=== PATIENT | female | born 1995 | race Caucasian/White ===

== ENCOUNTER 2017-06-15 11:19 | Emergency (ER) | payer BC, OTHER ==
[~2017-06-15] VITALS: Ht 167.6 cm; Wt 59.0 kg
[2017-06-15] MEDS ORDERED: CITA40TA11 (11:45)
--- NOTE | 2017-06-15 11:54 | ED GU-Female ---
General Chief Complaint: -Female Stated Complaint: ABD PAIN/N/V Nursing Triage Note: AMB TO ROOM REPORTS HAVING LOW ABD PAIN FOR 3 WEEKS WAS SEEN BY FAMILY WHO GOT HER APPOINTMENT IN [facility] WITH HER OBGYN ON WEDNESDAY. PMH OF REPTURED OVARIAN CYST. HAVING SOME VOMITING WITH PAIN NOW. Nursing Sepsis Screen: No Definite Risk Source: patient, other (boyfriend) Exam Limitations: no limitations History of Present Illness Time seen by provider: 11:54 Initial Comments 21 yo female patient presents to the ED for complaints of lower abdominal pain for approximately 3 wks. She was seen by her PCP and [place], [place] last week. Yesterday had a celiac panel drawn. Patient is scheduled to see Dr. Islas and have an outpatient pelvic ultrasound done on of this week. Brenda does have a history of ruptured ovarian cysts. Does have vomiting, nausea, and increased pain today. Does admit to having intermittent generalized abdominal pain and bloating over the last 1-2 years. Was worked up approximately a year ago in [place] and was told she needed an endoscope done. States she was in school and was not able to have a scope done at that time. States she does not eat fatty foods, spicy foods. avoids foods containing lactose and gluten. Timing/Duration: getting worse Severity/Quality: aching, cramping Location: suprapubic Radiation: none Activities at Onset: none Prior Genitourinary Problems: similar symptoms Sexual [place] History: less than 2 months ago, single partner Modifying Factors: Worsens With Movement, Worsens With Palpation Allergies and Home Medications Allergies Coded Allergies: No Known Drug Allergies (Unverified , 06/15/17) Home Medications Citalopram Hydrobromide 40 Mg Tablet, (Reported) Constitutional: No chills, No diaphoresis, No fever, No malaise EENTM: no symptoms reported Respiratory: no symptoms reported Cardiovascular: no symptoms reported Gastrointestinal: see HPI, abdominal pain, No constipation, No diarrhea, No hematemesis, No heartburn, loss of appetite, No melena, nausea, vomiting Genitourinary: denies burning, denies discharge, denies dysuria, frequency, denies flank pain, denies hematuria, pain, urgency : No Musculoskeletal: no symptoms reported Skin: no symptoms reported Psychiatric/Neurological: No Symptoms Reported All Other Systemes Reviewed Negative Unless Noted: Yes (Negative excepted noted.) Past Dqwuahs-Hjndav-Ndkddf Hx Patient Social History Alcohol Use: Denies Use Recreational Drug Use: No Smoking Status: Never a Smoker Recent Foreign Travel: No Contact w/Someone Who Travel: No Recent Infectious Disease Expo: No Surgeries History of Surgeries: Yes (OVARIAN CYST ) Respiratory History of Respiratory Disorde: No Cardiovascular History of Cardiac Disorders: No Neurological History of Neurological Disord: No Reproductive System : No Last Menstrual Period: May 31, 2017 Hx : 0 Hx Reproductive Disorders: Yes Sexually Transmitted Disease: No Female Reproductive Disorders: Ovarian Cyst Genitourinary History of Genitourinary Disor: No Gastrointestinal History of Gastrointestinal Di: Yes (abdominal bloating and pain intermittently (no definite diagnosis)) Musculoskeletal History of Musculoskeletal Dis: No Endocrine History of Endocrine Disorders: No HEENT History of HEENT Disorders: No Cancer History of Cancer: No Psychosocial History of Psychiatric Problem: Yes Behavioral Health Disorders: Anxiety Integumentary History of Skin or Integumenta: No Reviewed Nursing Assessment Reviewed/Agree w Nursing PMH: Yes Family Medical History Significant Family History: No Pertinent Family Hx Physical Exam Vital Signs Vital Sign - Last 12Hours 06/15/17 11:32 Temp 98.3 Pulse 114 Resp 18 B/P (MAP) 114/79 (91) Pulse Ox 100 Capillary Refill : Less Than 3 Seconds General Appearance: WD/WN, no apparent distress HEENT: PERRL/EOMI, pharynx normal Neck: supple, normal inspection Cardiovascular: normal peripheral pulses, regular rate, rhythm, no murmur Respiratory: lungs clear, normal breath sounds, no respiratory distress, no accessory muscle use Gastrointestinal: normal bowel sounds, soft, no organomegaly, distended ( mildly distended but soft.), guarding (suprapubic and BLQ), No rebound, tenderness (BLQ and suprapubic), No mass Back: normal inspection, no CVA tenderness Extremities: normal capillary refill Neurologic/Psychiatric: alert, normal mood/affect, oriented x 3 Skin: normal color, warm/dry Progress/Results/Core Measures Suspected Sepsis Recent Fever Within 48 Hours: No Infection Criteria Present: None New/Unexplained Altered Menta: No Sepsis Screen: No Definite Risk Sepsis Diagnosis: SIRS Temperature:98.3 Pulse: 114 Respiratory Rate: 18 Laboratory Tests 06/15/17 12:12: White Blood Count 10.4 Blood Pressure 114 /79 Mean: 91 Laboratory Tests 06/15/17 12:12: Creatinine 0.66, Platelet Count 242, Total Bilirubin 0.6 Results/Orders Lab Results Laboratory Tests Test 06/15/17 12:04 06/15/17 12:12 Range/Units Urine Color YELLOW Urine Clarity CLEAR Urine pH 6 5-9 Urine Specific [place] 1.015 L 1.016-1.022 Urine Protein NEGATIVE NEGATIVE Urine Glucose (UA) NEGATIVE NEGATIVE Urine Ketones NEGATIVE NEGATIVE Urine Nitrite NEGATIVE NEGATIVE Urine Bilirubin NEGATIVE NEGATIVE Urine Urobilinogen NORMAL NORMAL MG/DL Urine Leukocyte Esterase 1+ H NEGATIVE Urine RBC (Auto) NEGATIVE NEGATIVE Urine RBC NONE /HPF Urine WBC 5-10 H /HPF Urine Squamous Epithelial Cells 10-25 H /HPF Urine Crystals NONE /LPF Urine Bacteria MODERATE H /HPF Urine Casts NONE /LPF Urine Mucus NEGATIVE /LPF Urine Culture Indicated YES White Blood Count 10.4 4.3-11.0 10^3/uL Red Blood Count 4.84 4.35-5.85 10^6/uL Hemoglobin 15.1 11.5-16.0 G/DL Hematocrit 43 35-52 % Mean Corpuscular Volume 88 80-99 FL Mean Corpuscular Hemoglobin 31 25-34 PG Mean Corpuscular Hemoglobin Concent 35 32-36 G/DL Red Cell Distribution Width 12.6 10.0-14.5 % Platelet Count 242 130-400 10^3/uL Mean Platelet Volume 11.5 H 7.4-10.4 FL Neutrophils (%) (Auto) 82 H 42-75 % Lymphocytes (%) (Auto) 14 12-44 % Monocytes (%) (Auto) 3 0-12 % Eosinophils (%) (Auto) 1 0-10 % Basophils (%) (Auto) 0 0-10 % Neutrophils # (Auto) 8.6 H 1.8-7.8 X 10^3 Lymphocytes # (Auto) 1.4 1.0-4.0 X 10^3 Monocytes # (Auto) 0.3 0.0-1.0 X 10^3 Eosinophils # (Auto) 0.1 0.0-0.3 10^3/uL Basophils # (Auto) 0.0 0.0-0.1 10^3/uL Sodium Level 136 135-145 MMOL/L Potassium Level 4.0 3.6-5.0 MMOL/L Chloride Level 102 98-107 MMOL/L Carbon Dioxide Level 24 21-32 MMOL/L Anion Gap 10 5-14 MMOL/L Blood Urea Nitrogen 13 7-18 MG/DL Creatinine 0.66 0.60-1.30 MG/DL Estimat Glomerular Filtration Rate > 60 BUN/Creatinine Ratio 20 Glucose Level 88 70-105 MG/DL Calcium Level 9.1 8.5-10.1 MG/DL Total Bilirubin 0.6 0.1-1.0 MG/DL Aspartate Amino Transf (AST/SGOT) 19 5-34 U/L Alanine Aminotransferase (ALT/SGPT) 17 0-55 U/L Alkaline Phosphatase 47 40-136 U/L C-Reactive Protein High Sensitivity 0.37 0.00-0.50 MG/DL Total Protein 7.5 6.4-8.2 GM/DL Albumin 4.5 3.2-4.5 GM/DL My Orders Orders - FINN ZACARIAS Cbc With Automated Diff (06/15/17 11:52) Comprehensive Metabolic Panel (06/15/17 11:52) Hs C Reactive Protein (06/15/17 11:52) Ua Culture If Indicated (06/15/17 11:52) Saline Lock/Iv-Start (06/15/17 11:52) Urine Bedside (06/15/17 11:52) Urine Culture (06/15/17 12:04) Ns Iv 1000 Ml (Sodium Chloride 0.9%) (06/15/17 12:20) Ondansetron Injection (Zofran Injectio (06/15/17 12:30) Ketorolac Injection (Toradol Injection) (06/15/17 12:20) Us Non Ob Transvaginal [id number] (06/15/17 12:20) Ct Abdomen/Pelvis W (06/15/17 14:34) Iohexol Injection (Omnipaque 350 Mg/Ml 1 (06/15/17 14:45) Ns (Ivpb) (Sodium Chloride 0.9% Ivpb Bag (06/15/17 14:45) Medications Given in ED Current Medications Medications Dose Ordered Sig/Yeni Route Start Time Stop Time Status Last Admin Dose Admin Iohexol 100 ml ONCE ONCE IV 06/15/17 14:45 06/15/17 14:46 DC 1/9/18 15:08 100 ML Ondansetron HCl 4 mg ONCE ONCE IVP 06/15/17 12:30 06/15/17 12:31 DC 06/15/17 12:40 4 MG Sodium Chloride 100 ml ONCE ONCE IV 06/15/17 14:45 06/15/17 14:46 DC 06/15/17 15:08 80 ML Sodium Chloride 1,000 ml @ 0 mls/hr Q0M ONCE IV 06/15/17 12:20 06/15/17 12:22 DC 06/15/17 12:42 1,000 MLS/HR Vital Signs/I&O Vital Sign - Last 12Hours 06/15/17 11:32 Temp 98.3 Pulse 114 Resp 18 B/P (MAP) 114/79 (91) Pulse Ox 100 Capillary Refill : Less Than 3 Seconds Blood Pressure Mean: 91 Diagnostic Imaging Diagonstic Imaging: Ultrasound Plain Films/CT/US/NM/MRI: pelvis Comments US NON OB TRANSVAGINAL [id number] EXAMINATION: Pelvic ultrasound. INDICATION: Pelvic pain. COMPARISON: There are no prior studies available for comparison. FINDINGS : The uterus is nongravid and not enlarged measuring 6.7 x 2.9 x 3.0 cm. The endometrial lining is not thickened measuring 5-6 mm. There is no focal mass involving the uterus to suggest a fibroid. The right ovary is identified. There is a 3.8 x 3.2 x 3.0 cm cyst associated with the right ovary. This cyst has a generally benign appearance. The left ovary is not well visualized. There is no solid pelvic mass or free fluid collection noted. IMPRESSION: 1. There is a 3.8 x 3.2 x 3.0 cm benign-appearing cyst associated with the right ovary. There is no acute pelvic abnormality identified. 2. The left ovary is not visualized. Dictated on workstation # [id number] Reviewed: Reviewed by Me (radiology report reviewed by me) Diagonstic Imaging: CT Plain Films/CT/US/NM/MRI: abdomen, pelvis Comments CT ABDOMEN/PELVIS W PROCEDURE: CT abdomen and pelvis with contrast. TECHNIQUE: Multiple contiguous axial images were obtained through the abdomen and pelvis after administration of intravenous contrast. INDICATION: Nausea, vomiting, pain , bloating. COMPARISON: No priors. FINDINGS: The liver, gallbladder, bile ducts , spleen, adrenals and pancreas were unremarkable. The unobstructed kidneys nonfocal and nonacute. There is no bowel, biliary or urinary tract obstruction. There is a right adnexal cyst measuring 3.2 x 2.[address] complexity. The uterus retroflexed eccentric to the left, appeared otherwise normal. The left adnexa unremarkable. No pelvic ascites. No perienteric or pericolonic edema. Distal small bowel showing no air-fluid levels does contain some small bowel feces which may reflect stasis. Colonic fecal load was not pathologic. No perienteric or pericolonic edema. The urinary bladder normal. IMPRESSION: 1. Right ovarian cyst. Unobstructed urinary tracts with negative liver. 2. No evidence for bowel obstruction however distal small bowel stool containing may reflect stasis. No perforation or abscess. No focal inflammatory process. Negative for appendicitis or diverticulitis. Dictated on workstation # [id number] Departure Impression Impression: Primary Impression: Ovarian cyst Additional Impressions: Urinary tract infection Lower abdominal pain Disposition: HOME, SELF-CARE Condition: Improved Departure-Patient Inst. Decision time for Depature: 15:31 Referrals: JOY PROCTOR BRETT D DO JENKINS, XAVIER M MD KIDO, TAKAAKI MD NO,LOCAL PHYSICIAN (PCP) Primary Care Physician Patient Instructions: Urinary Tract Infection, Adult (DC), Ovarian Cyst (DC) Add. Discharge Instructions: All discharge instructions reviewed with patient and/or family. Voiced understanding. Medications as instructed. Tylenol Extra Strength over-the- counter as directed for pain. Ibuprofen 800 mg by mouth every 8 hours as needed for pain. Drink plenty of fluids. Follow-up with Dr. Islas as an outpatient on as previously scheduled for recheck and for pelvic exam/ pap smear. Follow-up with the general surgeon of your choice for need of EGD and Colonoscopy. Call for appointment time. Return to the emergency department for worsened pain, fever, vomiting, vomiting blood, rectal bleeding, black stools, or any other concerns. Scripts Ondansetron (Ondansetron Odt) 8 Mg Tab.rapdis 8 MG PO Q6H Y for NAUSEA/VOMITING-1ST LINE, #10 TAB 0 Refills Prov: FINN ZACARIAS 06/15/17 Dicyclomine HCl (Dicyclomine HCl) 20 Mg Tablet 20 MG PO TID, #30 TAB 0 Refills Prov: FINN ZACARIAS 06/15/17 Cefdinir (Cefdinir) 300 Mg Capsule 300 MG PO BID, #10 CAP 0 Refills Prov: FINN ZACARIAS 06/15/17 Work/School Note: Work Release Form Date Seen in the Emergency Department: Jun 15, 2017 Return to Work: Jun 17, 2017 FINN ZACARIAS Jun 15, 2017 11:54
[2017-06-15 12:10] LABS: BILIRUBIN,URINE NEGATIVE (NEGATIVE); CLARITY,URINE CLEAR; COLOR,URINE YELLOW; GLUCOSE, URINE (UA) NEGATIVE (NEGATIVE); KETONES,URINE NEGATIVE (NEGATIVE); LEUKOCYTE ESTERASE ,URINE 1+ (NEGATIVE); NITRITE,URINE NEGATIVE (NEGATIVE); PH,URINE 6 (5-9); PROTEIN,URINE NEGATIVE (NEGATIVE); UROBILINOGEN,URINE NORMAL (NORMAL)
[2017-06-15 12:18] LABS: BASOPHILS % (AUTO) 0 % (0-10); EOSINOPHILS # (AUTO) 0.1 10^3/uL (0.0-0.3); EOSINOPHILS % (AUTO) 1 % (0-10); HEMATOCRIT 43 % (35-52); HEMOGLOBIN 15.1 G/DL (11.5-16.0); LYMPHOCYTES # (AUTO) 1.4 X 10^3 (1.0-4.0); LYMPHOCYTES % (AUTO) 14 % (12-44); MEAN CORPUSCULAR HEMOGLOBIN 31 PG (25-34); MEAN CORPUSCULAR HGB CONC 35 G/DL (32-36); MEAN CORPUSCULAR VOLUME 88 FL (80-99); MEAN PLATELET VOLUME 11.5 FL (7.4-10.4); MONOCYTES # (AUTO) 0.3 X 10^3 (0.0-1.0); MONOCYTES % (AUTO) 3 % (0-12); NEUTROPHILS # (AUTO) 8.6 X 10^3 (1.8-7.8); NEUTROPHILS % (AUTO) 82 % (42-75); PLATELET COUNT 242 10^3/uL (130-400); RED BLOOD COUNT 4.84 10^6/uL (4.35-5.85); RED CELL DISTRIBUTION WIDTH 12.6 % (10.0-14.5); WHITE BLOOD COUNT 10.4 10^3/uL (4.3-11.0)
[2017-06-15 12:18] LABS: BACTERIA,URINE MODERATE /HPF
[2017-06-15] MEDS ORDERED: NS IV 1000 ML 1,000 ML IV ONE (12:20)
[2017-06-15] MEDS ORDERED: KETOROLAC 30 MG/ML VIAL IVP STA (12:20)
[2017-06-15] MEDS ORDERED: ONDANSETRON 4 MG/2 ML (SDV) Z0FRAN IVP ONE ×2 (12:30→15:45)
[2017-06-15 12:39] LABS: ALANINE AMINOTRANSFERASE 17 U/L (0-55); ALBUMIN 4.5 GM/DL (3.2-4.5); ALKALINE PHOSPHATASE 47 U/L (40-136); BILIRUBIN,TOTAL 0.6 MG/DL (0.1-1.0); BUN/CREATININE RATIO 20; CALCIUM 9.1 MG/DL (8.5-10.1); CARBON DIOXIDE 24 MMOL/L (21-32); CHLORIDE 102 MMOL/L (98-107); CREATININE SERUM 0.66 MG/DL (0.60-1.30); GFR ESTIMATED > 60; GLUCOSE 88 MG/DL (70-105); SODIUM 136 MMOL/L (135-145); TOTAL PROTEIN 7.5 GM/DL (6.4-8.2)
[2017-06-15] MEDS ORDERED: NS 100 ML (IVPB) BAG IV ONE (14:45)
[2017-06-15] MEDS ORDERED: IOHEXOL 350 MG/ML 100 ML (OMNIPAQUE 350) VIAL IV ONE (14:45)
--- NOTE | 2017-06-15 14:45 | Diagnostic Imaging Report ---
EXAMINATION: Pelvic ultrasound. INDICATION: Pelvic pain. COMPARISON: There are no prior studies available for comparison. FINDINGS: The uterus is nongravid and not enlarged measuring 6.7 x 2.9 x 3.0 cm. The endometrial lining is not thickened measuring 5-6 mm. There is no focal mass involving the uterus to suggest a fibroid. The right ovary is identified. There is a 3.8 x 3.2 x 3.0 cm cyst associated with the right ovary. This cyst has a generally benign appearance. The left ovary is not well visualized. There is no solid pelvic mass or free fluid collection noted. IMPRESSION: 1. There is a 3.8 x 3.2 x 3.0 cm benign-appearing cyst associated with the right ovary. There is no acute pelvic abnormality identified. 2. The left ovary is not visualized. Dictated by: Dictated on workstation # [id number]
--- NOTE | 2017-06-15 15:25 | Diagnostic Imaging Report ---
PROCEDURE: CT abdomen and pelvis with contrast. TECHNIQUE: Multiple contiguous axial images were obtained through the abdomen and pelvis after administration of intravenous contrast. INDICATION: Nausea, vomiting, pain, bloating. COMPARISON: No priors. FINDINGS: The liver, gallbladder, bile ducts, spleen, adrenals and pancreas were unremarkable. The unobstructed kidneys nonfocal and nonacute. There is no bowel, biliary or urinary tract obstruction. There is a right adnexal cyst measuring 3.2 x 2.[address] complexity. The uterus retroflexed eccentric to the left, appeared otherwise normal. The left adnexa unremarkable. No pelvic ascites. No perienteric or pericolonic edema. Distal small bowel showing no air-fluid levels does contain some small bowel feces which may reflect stasis. Colonic fecal load was not pathologic. No perienteric or pericolonic edema. The urinary bladder normal. IMPRESSION: 1. Right ovarian cyst. Unobstructed urinary tracts with negative liver. 2. No evidence for bowel obstruction however distal small bowel stool containing may reflect stasis. No perforation or abscess. No focal inflammatory process. Negative for appendicitis or diverticulitis. Dictated by: Dictated on workstation # [id number]
[2017-06-15] MEDS ORDERED: DICY20TA10 PO (15:35)
[2017-06-15] MEDS ORDERED: ONDA8TAB13 PO (15:35)
[2017-06-15] MEDS ORDERED: CEFD300C3 PO (15:35)
[2017-06-15] MEDS ORDERED: PHEN-640 PO (15:47)
[2017-06-15] MEDS ORDERED: HYDROcodone/APAP 5 MG/325 MG (LORTAB) TAB PO ONE (16:00)
[2017-06-15] MEDS ORDERED: PHENAZOPYRIDINE 100 MG (PYRIDIUM) TABLET PO ONE (16:00)
[2017-06-15] MEDS ORDERED: ACHD5005 PO (16:01)
[2017-06-15 16:05] VITALS: BP 121/87
--- OUTSIDE RECORDS SUMMARY | 2017-06-16 10:24 | XMS REPORT | Continuity of Care Document ---
Author Author [email or web address]. Organization [facility]. Address Unknown Phone Unavailable Care Team Providers Care Osha Inspector Name Role Phone Patient States, No PCP Unavailable Unavailable Insurance Providers Payer Name Policy Number Subscriber Name [id number] MASON QUEVEDO FATHER Advance Directives Directive Response Recorded Date/Time Advance Directives: No 03/14/16 4:43pm Problems Active Medical Problems Problem Onset Date Recorded Date Status Torsion of right ovary and ovarian pedicle Unknown 03/14/16 Active RLQ abdominal pain Unknown 03/14/16 Active Ovarian cyst Unknown 03/14/16 Active Hemoperitoneum Unknown 03/14/16 Active Medications Current Home Medications Medication Dose Units Route Directions Days/Qty Instructions Start Date Docusate Sodium (Colace) 100 MG SGL 100 MG PO Twice daily 30 03/14/16 Ibuprofen (Motrin) 800 MG TABLET 800 MG PO Every eight hours 30 oxyCODONE/Acetaminophen (Percocet) 5 MG/325 MG TABLET 1-2 UDTAB PO Every four hours PRN Moderate Pain 30 1-2 tablets(not to exceed 12 tablets/24 hours ) 03/14/16 [stomach medicine] Social History Query Response Start Date Stop Date Smoking status: Never smoker Hospital Discharge Instructions No hospital discharge instructions. Plan of Care No plan of care. Functional Status No functional status results. Allergies, Adverse Reactions, Alerts No known allergies. Immunizations No Known History of Immunizations. Vital Signs Vital Reading Collection Date/Time Result Blood Pressure 10/09/16 8:00am 105/47 Blood Pressure Source 03/15/16 8:00am Supine Patient Temperature 03/15/16 8:00am 98.2 Temperature Source 03/15/16 8:00am Oral Respiratory Rate 03/15/16 8:00am 16 Pulse Rate 03/15/16 8:00am 90 Pulse Location 03/15/16 8:00am Dynamap Bedside Pulse Oximetry 03/15/16 1:20am 99 Height 03/14/16 4:43pm 170.2 cm Height 03/14/16 4:43pm 5 ft 07 in Weight 03/14/16 4:43pm 65.0 kg Weight 03/14/16 4:43pm 143.0 lb Body Mass Index 03/14/16 4:43pm 22.4 Results Laboratory Results Test Name Result Units Flags Reference Collection Date/Time Result Date/ Time Comments White Blood Count 10.8 K/mm3 4.8-10.8 03/14/16 5:15pm 03/14/16 5:23pm Red Blood Count 4.41 M/mm3 4.10-5.30 03/14/16 5:15pm 03/14/16 5:23pm Hemoglobin 13.5 g/dl 12.0-15.0 03/14/16 5:15pm 03/14/16 5:23pm Hematocrit 38.9 % 35.0-45.0 03/14/16 5:15pm 03/14/16 5:23pm Mean Corpuscular Volume 88 fl 80.0-95.0 03/14/16 5:15pm 03/14/16 5: 23pm Mean Corpuscular Hemoglobin 31 pg 26.0-32.0 03/14/16 5:15pm 03/14/16 5: 23pm Mean Corpuscular Hemoglobin Concent 35 g/dl 33.0-37.0 03/14/16 5:15pm 03/14/16 5:23pm Red Cell Distribution Width 12.3 % 11.5-14.5 03/14/16 5:15pm 03/14/16 5 :23pm Platelet Count 276 K/mm3 130-400 03/14/16 5:15pm 03/14/16 5:23pm Mean Platelet Volume 11.0 fl H 7.4-10.4 10/08/16 5:15pm 03/14/16 5:23pm Granulocytes (%) 66.6 % 42.2-75.2 03/14/16 5:15pm 03/14/16 5:23pm Lymphocytes % 25.1 % 20.0-51.0 03/14/16 5:15pm 03/14/16 5:23pm Monocytes % 7.1 % 1.7-9.3 03/14/16 5:15pm 03/14/16 5:23pm Eosinophils % 0.5 % 0-4.0 03/14/16 5:15pm 03/14/16 5:23pm Basophils % 0.3 % 0.0-2.0 03/14/16 5:15pm 03/14/16 5:23pm Granulocytes # 7.2 H 1.4-6.5 03/14/16 5:15pm 03/14/16 5:23pm Lymphocytes # 2.7 1.2-3.4 03/14/16 5:15pm 03/14/16 5:23pm Monocytes # 0.8 H 0.1-0.6 03/14/16 5:15pm 03/14/16 5:23pm Eosinophils # 0.1 0.0-0.7 03/14/16 5:15pm 03/14/16 5:23pm Basophils # 0.0 0.0-0.2 03/14/16 5:15pm 03/14/16 5:23pm Glucose Level 92 mg/dL 74-106 03/14/16 5:15pm 03/14/16 5:33pm Blood Urea Nitrogen 11 mg/dL 7-17 03/14/16 5:15pm 03/14/16 5:33pm Creatinine 0.66 mg/dL 0.52-1.25 03/14/16 5:15pm 03/14/16 5:33pm Estimated GFR () 139 03/14/16 5:15pm 03/14/16 5: 33pm Estimated GFR (Non- 115 03/14/16 5:15pm 03/14/16 5: 33pm eGFR Interpretation: Chronic Kidney Disease=CKD CKD STAGE I > or=90 mL/min/1.73 square meters STAGE II 60 - 89 STAGE III 30 - 59 STAGE IV 15 - 29 STAGE V <15 NOTE: The MDRD Study equation has not been validated for use with the elderly (over 70 years of age), women, patients with serious comorbid conditions, or persons with extremes of body size, muscle mass, or nutritional status. Sodium Level 140 mmol/L 137-145 03/14/16 5:15pm 03/14/16 5:33pm Potassium Level 3.7 mmol/L 3.4-5.0 03/14/16 5:15pm 03/14/16 5:33pm Chloride Level 99 mmol/L 98-107 03/14/16 5:15pm 03/14/16 5:33pm Carbon Dioxide Level 26 mmol/L 22-30 03/14/16 5:15pm 03/14/16 5:33pm Anion Gap 15 mmol/L 7-16 03/14/16 5:15pm 03/14/16 5:33pm Calcium Level 9.4 mg/dL 8.4-10.2 03/14/16 5:15pm 03/14/16 5:33pm Calcium Adjusted for Albumin 8.9 mg/dL 8.4-10.2 03/14/16 5:15pm 5:33pm Serum Total Protein 7.5 gm/dL 6.4-8.2 03/14/16 5:15pm 03/14/16 5:33pm Albumin 4.6 gm/dL 3.5-5.0 03/14/16 5:15pm 03/14/16 5:33pm Total Bilirubin 1.1 mg/dL H 0.0-1.0 03/14/16 5:15pm 03/14/16 5:33pm Aspartate Amino Transf (AST/SGOT) 21 U/L 15-37 03/14/16 5:15pm 5:33pm Alanine Aminotransferase (ALT/SGPT) 35 U/L 9-52 03/14/16 5:15pm 5:33pm Alkaline Phosphatase 86 U/L 50-136 03/14/16 5:15pm 03/14/16 5:33pm Lipase 33 U/L 23-300 03/14/16 5:15pm 03/14/16 5:33pm Urine Collection Type CLEAN CATCH 03/14/16 5:00pm 03/14/16 5:10pm Urine Color Yellow 03/14/16 5:00pm 03/14/16 5:21pm Urine Appearance Hazy 03/14/16 5:00pm 03/14/16 5:21pm Urine Specific [place] 1.030 1.005-1.035 03/14/16 5:00pm 03/14/16 5: 21pm Urine pH 5 5-8 03/14/16 5:00pm 03/14/16 5:21pm Urine Protein 1+ H NEGATIVE 03/14/16 5:00pm 03/14/16 5:21pm Urine Glucose Negative NEGATIVE 03/14/16 5:00pm 03/14/16 5:21pm Urine Ketones 1+ H NEGATIVE 03/14/16 5:00pm 03/14/16 5:21pm Urine Bilirubin Negative NEGATIVE 03/14/16 5:00pm 03/14/16 5:21pm Urine Urobilinogen Negative mg/dL NEGATIVE 03/14/16 5:00pm 03/14/16 5: 21pm Urine Nitrate Negative NEGATIVE 03/14/16 5:00pm 03/14/16 5:21pm Urine Blood Negative NEGATIVE 03/14/16 5:00pm 03/14/16 5:21pm Urine Leukocyte Esterase Negative NEGATIVE 03/14/16 5:00pm 03/14/16 5 :21pm Urine WBC 10-20 /hpf H 03/14/16 5:00pm 03/14/16 5:21pm Urine RBC 2-5 /hpf 03/14/16 5:00pm 03/14/16 5:21pm Urine Squamous Epithelial Cells 0-2 /hpf 03/14/16 5:00pm 03/14/16 5: 21pm Urine Mucus Present /lpf 03/14/16 5:00pm 03/14/16 5:21pm Urine Bacteria Rare /hpf 03/14/16 5:00pm 03/14/16 5:21pm [facility] Name: MICHAEL QUEVEDO [place], [place] Physician: John Grajeda Admit: 03/14/16 : 96 [place]: [place] [facility] [place]: 222 History and Physical Examination DICTATING PROVIDER: John Grajeda MD PATIENT DATE OF : 1995 DATE OF DICTATION: 03/14/2016 CHIEF COMPLAINT: Abdominal and pelvic pain HISTORY OF PRESENT ILLNESS: The patient is a 20-year-old zero who presented to the emergency room with increasing right-sided abdominal pain since 0600 hours on . The pain has become steadily worse. She notes when she lays down the pain goes up to her upper abdomen. She even had upper abdominal symptoms with this. She feels the pain radiate to her shoulder. She was evaluated in the emergency room at which time her hCG was negative. Urine did show 10 to 20 white cells but otherwise okay. CMP was okay. CBC was normal. White count was 10.8. Hemoglobin was 13.5. The patient underwent a CT that showed a large amount of fluid in the abdomen, particularly the right paracolic gutter that had the consistency of blood. CT did not show any definite ovaries or masses. Appendix appeared normal. She was then taken for ultrasound evaluation which showed a 6 cm complex right ovarian mass with possible torsion. The findings were reviewed with the patient and the mother in the emergency room. Recommendations was to proceed directly with surgical evaluation. The patient presents for diagnostic laparoscopy. PAST MEDICAL HISTORY: 1. Gastroesophageal reflux well controlled on medications 2. Generalized anxiety which is not currently treated PAST SURGICAL HISTORY: Tonsils and adenoid remotely MEDICATIONS: Ranitidine p.r.n. ALLERGIES: No known drug allergies SOCIAL HISTORY: The patient is single. She is student from [place]. No alcohol , tobacco, or drug use. FAMILY HISTORY: Noncontributory REVIEW OF SYSTEMS: The patient reports no recent fevers or illness. Neurologic is negative. Psych is positive for the generalized anxiety. Endocrine is negative. Respiratory: The patient has noted when she lays flat that she has more pain and a harder time taking a deep breath. When she sits up, she does not have any shortness of breath. No dyspnea on exertion. Cardiovascular is negative. GI is negative. is negative. Patient reports until six months ago she was on Depo-Provera and had no periods. She has not started cycling again since coming off the Depo-Provera. Again her hCG was negative. PHYSICAL EXAMINATION: The patient is afebrile. Vital signs are as listed on the chart. Originally when she presented, her pulse was slightly elevated, in the 100s up to the 110 range. It is currently in the 80s. She has received Toradol and Ativan in the emergency [facility] Name: MICHAEL QUEVEDO [place], [place] Physician: John Grajeda Admit: 03/14/16 : [birth year] Status: [place] [facility] [place]: 222 History and Physical Examination room. In general she is a well-developed, well-nourished white female who is alert and cooperative with the examination. Neck is supple and nontender. Thyroid is not enlarged. Chest is clear. Cardiac is regular rate and rhythm. Abdomen is soft, mildly distended. There is some guarding and tenderness, particularly in the right lower quadrant. No evidence of hernia. No hepatic or splenic enlargement. Extremities are without clubbing, cyanosis, or edema. is normal. Normal external female genitalia. Vulva and vagina are without lesions or abnormal discharge. Cervix is nulliparous and nontender. Uterus is small, anteverted and mildly tender with movement. No chandelier sign. Right adnexa is exquisitely tender to palpation and fairly immobile. The left adnexa is small and mobile. ASSESSMENT: 1. Acute right lower quadrant pain 2. Right ovarian complex cyst 3. Hemoperitoneum, probably from hemorrhagic cyst 4. Possible ovarian torsion PLAN: I have discussed with the patient and her mother the need for immediate surgical evaluation. We will start with laparoscopy and proceed as indicated. Discussed possible ovarian cystectomy or even possible oophorectomy if this is needed due to hemorrhage or torsion with nonviable ovary and the impact and future health and fertility this would represent as well as possible impact on incision size, healing time, and such. Questions were answered to the patient and her mother's satisfaction. Discussed the risks associated with surgery and the patient accepts and desires to proceed. #[id number] Signed By: John Grajeda <<Signature on File>> [id number]/14/[id number] Dictated By: John Grajeda D/ 14 Transcribed: LAURIE NEWELL D/ 28 History and Physical Exam End Of Report Procedures No Known History of Procedures. Encounters Encounter Location Arrival/Admit Date Discharge/Depart Date Attending Provider Departed [facility] 03/14/16 4:41pm 9:00am John Grajeda Departed Emergency [facility] 03/14/16 4:41pm 03/15/16 9 :00am John Grajeda Encounter Diagnosis Onset Date Torsion of right ovary and ovarian pedicle RLQ abdominal pain Ovarian cyst Hemoperitoneum
== END 2017-06-15 16:05 | disposition home or self-care (01) ==
LOC: ER 11:23
DX: N83.291 Other ovarian cyst, right side (principal); N39.0 Urinary tract infection, site not specified; F41.9 Anxiety disorder, unspecified; Z87.448 Personal history of other diseases of urinary system; Z87.19 Personal history of other diseases of the digestive system
CPT/HCPCS: 36415; 74177; 76830; 80053; 81000; 84703; 85025; 86141; 87088; 96361; 96374; 96375; 96376

== ENCOUNTER 2017-06-15 20:50 | Emergency (ER) | payer BC ==
[~2017-06-15] VITALS: Ht 167.6 cm; Wt 59.0 kg
[~2017-06-15 20:50] MED LIST: ACHD5005 PO; CEFD300C3 PO; CITA40TA11; DICY20TA10 PO; ONDA8TAB13 PO; PHEN-640 PO
[2017-06-15] MEDS ORDERED: NS IV 1000 ML 1,000 ML IV ONE (21:38)
[2017-06-15] MEDS ORDERED: PROMETHAZINE INJ 25 MG/ML (PHENERGAN) AMP IVP ONE (21:45)
[2017-06-15] MEDS ORDERED: fentaNYL INJECTION 100 MCG/2 ML AMP IVP ONE (21:45)
[2017-06-15 22:55] LABS: BASOPHILS % (AUTO) 0 % (0-10); EOSINOPHILS % (AUTO) 0 % (0-10); HEMATOCRIT 42 % (35-52); HEMOGLOBIN 14.6 G/DL (11.5-16.0); LYMPHOCYTES # (AUTO) 0.6 X 10^3 (1.0-4.0); LYMPHOCYTES % (AUTO) 9 % (12-44); MEAN CORPUSCULAR HEMOGLOBIN 31 PG (25-34); MEAN CORPUSCULAR HGB CONC 35 G/DL (32-36); MEAN CORPUSCULAR VOLUME 89 FL (80-99); MEAN PLATELET VOLUME 11.2 FL (7.4-10.4); MONOCYTES # (AUTO) 0.3 X 10^3 (0.0-1.0); MONOCYTES % (AUTO) 4 % (0-12); NEUTROPHILS # (AUTO) 6.4 X 10^3 (1.8-7.8); NEUTROPHILS % (AUTO) 87 % (42-75); PLATELET COUNT 211 10^3/uL (130-400); RED CELL DISTRIBUTION WIDTH 12.7 % (10.0-14.5); WHITE BLOOD COUNT 7.4 10^3/uL (4.3-11.0)
[2017-06-15] MEDS ORDERED: cefTRIAXone INJECTION 1,000 MG in NS (IVPB) 50 ML IV ONE (23:45)
[2017-06-16] MEDS ORDERED: AZITHROMYCIN 250 MG TAB (ZITHROMAX) PO ONE (00:15)
--- NOTE | 2017-06-16 00:27 | ED GU-Female ---
General Chief Complaint: Abdominal/GI Problems Stated Complaint: ABD PAIN,VOMITING Nursing Triage Note: PATIENT WAS HERE EARLIER TODAY FOR THE SAME SYMPTOMS BUT CAME BACK BECAUSE SHE STATES THAT HER PAIN HAS INCREASED SLIGHTLY HOWEVER IT IS ALSO MORE CONCENTRATED TO THE RIGHT SIDE WHERE THE CYST IS. SHE IS ALSO CONCERNED BECAUSE SHE TOOK HER PRESCRIBED MEDICATIONS AND VOMITTED 30 MINS LATER. Nursing Sepsis Screen: No Definite Risk Source: patient Exam Limitations: no limitations Allergies and Home Medications Allergies Coded Allergies: No Known Drug Allergies (Unverified , 06/15/17) Home Medications Cefdinir 300 Mg Capsule, 300 MG PO BID, #10 Ref 0 Prescribed by: FINN ZACARIAS on 06/15/17 1535 Citalopram Hydrobromide 40 Mg Tablet, (Reported) Dicyclomine HCl 20 Mg Tablet, 20 MG PO TID, #30 Ref 0 Prescribed by: FINN ZACARIAS on 06/15/17 1535 Hydrocodone Bit/Acetaminophen 1 Tab Tab, 1 TAB PO Q4H PRN for PAIN-MODERATE TO SEVERE, #20 Ref 0 Prescribed by: FINN ZACARIAS on 06/15/17 1601 Ondansetron 8 Mg Tab.rapdis, 8 MG PO Q6H PRN for NAUSEA/VOMITING-1ST LINE, #10 Ref 0 Prescribed by: FINN ZACARIAS on 06/15/17 1535 Phenazopyridine HCl 200 Mg Tablet, 200 MG PO TID PRN for pain, #14 Ref 0 Prescribed by: FINN ZACARIAS on 06/15/17 1547 Past Ewtyjmk-Evidns-Twwnxu Hx Patient Social History Alcohol Use: Denies Use Recreational Drug Use: No Smoking Status: Never a Smoker 2nd Hand Smoke Exposure: No Recent Foreign Travel: No Contact w/Someone Who Travel: No Recent Infectious Disease Expo: No Surgeries History of Surgeries: Yes (OVARIAN CYST ) Respiratory History of Respiratory Disorde: No Cardiovascular History of Cardiac Disorders: No Neurological History of Neurological Disord: No Reproductive System Hx Reproductive Disorders: Yes Sexually Transmitted Disease: No Female Reproductive Disorders: Ovarian Cyst Genitourinary History of Genitourinary Disor: No Gastrointestinal History of Gastrointestinal Di: Yes (abdominal bloating and pain intermittently (no definite diagnosis)) Musculoskeletal History of Musculoskeletal Dis: No Endocrine History of Endocrine Disorders: No HEENT History of HEENT Disorders: No Cancer History of Cancer: No Psychosocial History of Psychiatric Problem: Yes Behavioral Health Disorders: Anxiety Integumentary History of Skin or Integumenta: No Family Medical History Significant Family History: No Pertinent Family Hx Physical Exam Vital Signs Vital Sign - Last 12Hours 06/15/17 21:05 Temp 98.3 Pulse 97 Resp 18 B/P (MAP) 122/88 (99) Pulse Ox 99 O2 Delivery Room Air Capillary Refill : Less Than 3 Seconds Progress/Results/Core Measures Suspected Sepsis Recent Fever Within 48 Hours: No Infection Criteria Present: None New/Unexplained Altered Menta: No Sepsis Screen: No Definite Risk Sepsis Diagnosis: SIRS Temperature:98.3 Pulse: 97 Respiratory Rate: 18 Laboratory Tests 06/15/17 22:45: White Blood Count 7.4 Blood Pressure 122 /88 Mean: 99 Laboratory Tests 06/15/17 22:45: Platelet Count 211 Results/Orders Lab Results Laboratory Tests Test 06/15/17 22:45 06/15/17 22:57 Range/Units White Blood Count 7.4 4.3-11.0 10^3/uL Red Blood Count 4.70 4.35-5.85 10^6/uL Hemoglobin 14.6 11.5-16.0 G/DL Hematocrit 42 35-52 % Mean Corpuscular Volume 89 80-99 FL Mean Corpuscular Hemoglobin 31 25-34 PG Mean Corpuscular Hemoglobin Concent 35 32-36 G/DL Red Cell Distribution Width 12.7 10.0-14.5 % Platelet Count 211 130-400 10^3/uL Mean Platelet Volume 11.2 H 7.4-10.4 FL Neutrophils (%) (Auto) 87 H 42-75 % Lymphocytes (%) (Auto) 9 L 12-44 % Monocytes (%) (Auto) 4 0-12 % Eosinophils (%) (Auto) 0 0-10 % Basophils (%) (Auto) 0 0-10 % Neutrophils # (Auto) 6.4 1.8-7.8 X 10^3 Lymphocytes # (Auto) 0.6 L 1.0-4.0 X 10^3 Monocytes # (Auto) 0.3 0.0-1.0 X 10^3 Eosinophils # (Auto) 0.0 0.0-0.3 10^3/uL Basophils # (Auto) 0.0 0.0-0.1 10^3/uL Serum Test, Qualitative NEGATIVE NEGATIVE My Orders Orders - MARY BORREGO MD Saline Lock/Iv-Start (06/15/17 21:38) Cbc With Automated Diff (06/15/17 21:38) Hcg,Qualitative Serum (06/15/17 21:38) Saline Lock/Iv-Start (06/15/17 21:38) Ns Iv 1000 Ml (Sodium Chloride 0.9%) (06/15/17 21:38) Fentanyl Injection (Sublimaze Injection (06/15/17 21:45) Promethazine Injection (Phenergan Injec (06/15/17 21:45) Wet Prep (06/15/17 21:38) Neisseria Gonorrhea Dna (06/15/17 21:38) Chlamydia Dna (06/15/17 21:38) Genital Culture (06/15/17 21:38) Us Non Ob Transvaginal [id number] (06/15/17 21:38) Ceftriaxone Injection (Rocephin Injectio (06/15/17 23:45) Azithromycin Tablet (Zithromax Tablet) (06/16/17 00:15) Medications Given in ED Current Medications Medications Dose Ordered Sig/Yeni Route Start Time Stop Time Status Last Admin Dose Admin Ceftriaxone Sodium 1000 mg/ Sodium Chloride 50 ml @ 100 mls/hr ONCE ONCE IV 06/15/17 23:45 06/16/17 00:14 DC 06/15/17 23:58 100 MLS/HR Fentanyl Citrate 50 mcg ONCE ONCE IVP 06/15/17 21:45 06/15/17 21:46 DC 06/15/17 22:12 50 MCG Promethazine HCl 25 mg ONCE ONCE IVP 06/15/17 21:45 06/15/17 21:46 DC 06/15/17 22:13 25 MG Sodium Chloride 1,000 ml @ 0 mls/hr Q0M ONCE IV 06/15/17 21:38 06/15/17 21:41 DC 06/15/17 22:12 0 MLS/HR Vital Signs/I&O Vital Sign - Last 12Hours 06/15/17 21:05 Temp 98.3 Pulse 97 Resp 18 B/P (MAP) 122/88 (99) Pulse Ox 99 O2 Delivery Room Air Capillary Refill : Less Than 3 Seconds Blood Pressure Mean: 99 Departure Impression Impression: Primary Impression: Ovarian cyst Qualified Codes: N83.201 - Unspecified ovarian cyst, right side Additional Impressions: Pelvic pain Urinary tract infection Qualified Codes: N39.0 - Urinary tract infection, site not specified Nausea and vomiting Qualified Codes: R11.2 - Nausea with vomiting, unspecified Disposition: 01 HOME, SELF-CARE Condition: Improved Departure-Patient Inst. Decision time for Depature: 00:15 Referrals: BONI RODRIGUEZ DENNIS G MD NO,LOCAL PHYSICIAN (PCP) Primary Care Physician JEANETTE ROCHA DO Patient Instructions: Ovarian Cyst (DC) Add. Discharge Instructions: Drink plenty of clear liquids and gradually advance your diet with small quantities of bland food as tolerated. Dissolve Zofran under your tongue as described for nausea and vomiting. Take ibuprofen up to 600 mg every 6 hours as needed for pain. Add hydrocodone as prescribed for pain not controlled by ibuprofen. Follow-up with a clinical supervisor in about 5-7 days. Discuss possibilities of your pain which might include endometriosis. You should also review the vaginal culture results with your clinical supervisor. Observe pelvic rest (nothing in the vagina including intercourse) until follow- up with your clinical supervisor. Return to the emergency room if symptoms worsen. Restart the antibiotics prescribed during your earlier ER visit tomorrow (Jun 16 ) in the evening. All discharge instructions reviewed with patient and/or family. Voiced understanding. MARY BORREGO MD Jun 16, 2017 00:27
[2017-06-16 00:40] VITALS: BP 122/88
--- NOTE | 2017-06-16 07:54 | Diagnostic Imaging Report ---
INDICATION: Pain FINDINGS: There is a right ovarian cyst measuring 3 cm long axis showing no complexity. The myometrium appeared normal. The left ovary is not identified. IMPRESSION: Right ovarian cyst 3 cm. Dictated by: Dictated on workstation # [id number]
== END 2017-06-16 00:40 | disposition home or self-care (01) ==
LOC: EDUNIT# 20:50 → ER 20:51
DX: N83.201 Unspecified ovarian cyst, right side (principal); N39.0 Urinary tract infection, site not specified; F41.9 Anxiety disorder, unspecified; Z87.448 Personal history of other diseases of urinary system; Z87.19 Personal history of other diseases of the digestive system
CPT/HCPCS: 36415; 76830; 84703; 85025; 87070; 87210; 87491; 87591; 96361; 96374; 96375

== ENCOUNTER 2017-07-23 23:43 | Emergency (ER) | payer BC | END 2017-07-23 23:47 | disposition left against medical advice (07) | LOC: EDUNIT# 23:43 → ER 23:45 | DX: R10.9 Unspecified abdominal pain (principal) ==

== ENCOUNTER → 2018-05-16 | Outpatient (CLI) | payer OTHER, BC ==
--- NOTE | 2018-05-16 19:59 | Diagnostic Imaging Report ---
EXAMINATION: Cervical spine. INDICATION: Neck pain. FINDINGS: AP, lateral, and odontoid views were obtained. There are no prior studies available for comparison. The lateral view shows the vertebral body heights and alignment to be generally within normal limits. The intervertebral disc spaces are fairly well maintained. There is no fracture or acute bony abnormality evident. There is no sign of retropharyngeal edema. The lung apices are clear. IMPRESSION: There is no evidence for an acute bony abnormality. Dictated by: Dictated on workstation # [id number]
== END ==
LOC: RAD 15:42
PROVIDERS: ATTEND Chiropractor
DX: M54.2 Cervicalgia (principal); G43.009 Migraine without aura, not intractable, without status migrainosus; M79.10 Myalgia, unspecified site
CPT/HCPCS: 72040

== ENCOUNTER 2018-10-05 05:39 | Outpatient (CLI) | payer BC ==
[~2018-10-05] VITALS: Ht 167.6 cm; Wt 63.5 kg
== END 2018-10-05 16:08 | disposition home or self-care (01) ==
LOC: PREOP 05:39
PROVIDERS: ATTEND Obstetrics & Gynecology
DX: Z01.818 Encounter for other preprocedural examination (principal)

== ENCOUNTER 2018-10-13 07:15 | Day surgery (SDC) | payer BC ==
[~2018-10-13] VITALS: Ht 167.6 cm; Wt 63.5 kg
[2018-10-13] VITALS (14 sets, daily range): BP systolic 91–116; BP diastolic 50–81
--- OUTSIDE RECORDS SUMMARY | 2018-10-13 07:19 | XMS REPORT | Continuity of Care Document ---
Author Organization Unknown Address Unknown Allergies Active Description Code Type Severity Reaction Onset Reported/Identified Relationship to Patient Clinical Status Yes NO NAME AVAILABLE 22161 DRUG N/ A N/A Yes NKDA N/A N/A Yes No Known Allergies NKA Miscellaneous Allergy Unknown N/A 03/14/2016 Yes No Known Drug Allergies [id number] Drug Allergy Unknown N/A 06/15/2017 Medications Medication Packaging Start Date Stop Date Route Dosage Sig RANITIDINE HCL ORAL 12/25/2016 ORAL 150 daily CIPRO ORAL 12/25/2016 ORAL 250 twice each day CELEXA ORAL 12/25/2016 ORAL 40 daily Problems Date Dx Coded Attending Type Code Diagnosis Diagnosed By 03/15/2016 John Grajeda K66.1 HEMOPERITONEUM 03/15/2016 John Grajeda N83.201 UNSPECIFIED OVARIAN CYST, RIGHT SIDE 03/15/2016 John Grajeda R10.31 RIGHT LOWER QUADRANT PAIN 06/15/2017 FINN JIMENEZ Ot F41.9 ANXIETY DISORDER, UNSPECIFIED 06/15/2017 FINN JIMENEZ Ot N39.0 URINARY TRACT INFECTION, SITE NOT SPECIF 06/15/2017 FINN JIMENEZ Ot N83.291 OTHER OVARIAN CYST, RIGHT SIDE 06/15/2017 FINN JIMENEZ Ot R10.30 LOWER ABDOMINAL PAIN, UNSPECIFIED 06/15/2017 FINN JIMENEZ Ot Z87.19 PERSONAL HISTORY OF OTHER DISEASES OF TH 06/15/2017 FINN JIMENEZ Ot Z87.448 PERSONAL HISTORY OF OTHER DISEASES OF UR 06/16/2017 MARY BORREGO MD, Ot F41.9 ANXIETY DISORDER, UNSPECIFIED 06/16/2017 MARY BORREGO MD, Ot N39.0 URINARY TRACT INFECTION, SITE NOT SPECIF 06/16/2017 MARY BORREGO MD Ot N83.201 UNSPECIFIED OVARIAN CYST, RIGHT SIDE 06/16/2017 MARY BORREGO MD Ot R10.2 PELVIC AND PERINEAL PAIN 06/16/2017 MARY BORREGO MD Ot Z87.19 PERSONAL HISTORY OF OTHER DISEASES OF TH 06/16/2017 MARY BORREGO MD Ot Z87.448 PERSONAL HISTORY OF OTHER DISEASES OF UR 06/17/2017 FINN JIMENEZ Ot F41.9 ANXIETY DISORDER, UNSPECIFIED 06/17/2017 FINN JIMENEZ Ot N39.0 URINARY TRACT INFECTION, SITE NOT SPECIF 06/17/2017 FINN JIMENEZ Ot N83.291 OTHER OVARIAN CYST, RIGHT SIDE 06/17/2017 FINN JIMENEZ Ot R10.30 LOWER ABDOMINAL PAIN, UNSPECIFIED 06/17/2017 FINN JIMENEZ Ot Z87.19 PERSONAL HISTORY OF OTHER DISEASES OF TH 06/17/2017 FINN JIMENEZ Ot Z87.448 PERSONAL HISTORY OF OTHER DISEASES OF UR 07/23/2017 MITESH DO, JOSE ALBERTO K Ot R10.9 UNSPECIFIED ABDOMINAL PAIN 07/28/2017 MITESH DO JOSE ALBERTO K Ot R10.9 UNSPECIFIED ABDOMINAL PAIN 09/02/2018 ELIS LAWRENCE DC Ot G43.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 Results Test Result Range HCG-QUALITATIVE URINE - 03/14/16 17:00 HCG-QUALITATIVE URINE NEGATIVE URINALYSIS REFLEX CULTURE - 03/14/16 17:00 COLOR,URINE Yellow BILIRUBIN,URINE Negative NEGATIVE RBC,URINE 2-5 /hpf URINE WBC 10-20 /hpf COLLECTION METHOD CLEAN CATCH URINE KETONE 1+ NEGATIVE MUCOUS Present /lpf URINE NITRATE Negative NEGATIVE PH 5 5-8 URINE PROTEIN(semi-quant) 1+ NEGATIVE SPECIFIC GRAVITY,URINE 1.030 1.005-1.035 URINE APPEARANCE Hazy URINE BACTERIA Rare /hpf URINE BLOOD Negative NEGATIVE URINE GLUCOSE Negative NEGATIVE URINE LEUKOCYTE ESTERASE Negative NEGATIVE URINE UROBILINOGEN Negative mg/dL NEGATIVE SQUAMOUS EPITHELIAL 0-2 /hpf COMPLETE BLOOD CT w AutoDiff - 03/14/16 17:15 WHITE BLOOD COUNT 10.8 K/mm3 4.8-10.8 RED BLOOD COUNT 4.41 M/mm3 4.10-5.30 HEMOGLOBIN 13.5 g/dl 12.0-15.0 HEMATOCRIT 38.9 % 35.0-45.0 MEAN CORPUSCULAR VOLUME 88 fl 80.0-95.0 MEAN CORPUSCULAR HEMOGLOBIN 31 pg 26.0-32.0 MEAN CORPUSCULAR HGB CONC 35 g/dl 33.0-37.0 PLATELET COUNT 276 K/mm3 130-400 MEAN PLATELET VOLUME 11.0 fl 7.4-10.4 LYMPHOCYTES % (AUTO) 25.1 % 20.0-51.0 MONOCYTES % (AUTO) 7.1 % 1.7-9.3 EOSINOPHILS % (AUTO) 0.5 % 0-4.0 BASOPHILS % (AUTO) 0.3 % 0.0-2.0 LYMPHOCYTES # (AUTO) 2.7 1.2-3.4 MONOCYTES # (AUTO) 0.8 0.1-0.6 EOSINOPHILS # (AUTO) 0.1 0.0-0.7 BASOPHILS # (AUTO) 0.0 0.0-0.2 GRAN # 7.2 1.4-6.5 GRAN % 66.6 % 42.2-75.2 REDCELL DISTRIBUTION WIDTH-CV 12.3 % 11.5-14.5 COMPREHENSIVE METABOLIC PANEL - 03/14/16 17:15 SODIUM 140 mmol/L 137-145 POTASSIUM 3.7 mmol/L 3.4-5.0 CHLORIDE 99 mmol/L 98-107 CARBON DIOXIDE 26 mmol/L 22-30 ANION GAP 15 mmol/L 7-16 BLOOD UREA NITROGEN 11 mg/dL 7-17 GLUCOSE 92 mg/dL 74-106 CALCIUM 9.4 mg/dL 8.4-10.2 BILIRUBIN,TOTAL 1.1 mg/dL 0.0-1.0 ALKALINE PHOSPHATASE 86 U/L 50-136 ASPARTATE AMINO TRANSFERASE 21 U/L 15-37 ALANINE AMINOTRANSFERASE 35 U/L 9-52 TOTAL PROTEIN 7.5 gm/dL 6.4-8.2 ALBUMIN 4.6 gm/dL 3.5-5.0 CREATININE, serum 0.66 mg/dL 0.52-1.25 ADJUSTED CALCIUM 8.9 mg/dL 8.4-10.2 eGFR 139 eGFR non 115 LIPASE - 03/14/16 17:15 LIPASE 33 U/L 23-300 Complete urinalysis with reflex to culture - 06/15/17 12:04 Urine color determination YELLOW NRG Urine clarity determination CLEAR NRG Urine pH measurement by test strip 6 5-9 Specific gravity of urine by test strip 1.015 1.016- 1.022 Urine protein assay by test strip, semi-quantitative NEGATIVE NEGATIVE Urine glucose detection by automated test strip NEGATIVE NEGATIVE Erythrocytes detection in urine sediment by light microscopy NEGATIVE NEGATIVE Urine ketones detection by automated test strip NEGATIVE NEGATIVE Urine nitrite detection by test strip NEGATIVE NEGATIVE Urine total bilirubin detection by test strip NEGATIVE NEGATIVE Urine urobilinogen measurement by automated test strip (mass/volume) NORMAL NORMAL Urine leukocyte esterase detection by dipstick 1+ NEGATIVE Automated urine sediment erythrocyte count by microscopy (number/high power field) NONE NRG Automated urine sediment leukocyte count by microscopy (number/high power field ) [HPF] NRG Bacteria detection in urine sediment by light microscopy MODERATE NRG Squamous epithelial cells detection in urine sediment by light microscopy 10-25 NRG Crystals detection in urine sediment by light microscopy NONE NRG Casts detection in urine sediment by light microscopy NONE NRG Mucus detection in urine sediment by light microscopy NEGATIVE NRG Complete urinalysis with reflex to culture YES NRG Bacterial urine culture - 06/15/17 12:04 Bacterial urine culture [id number] NRG COLONY COUNT 10,000/ML - 100,000/ML NRG Complete blood count (CBC) with automated white blood cell (WBC) differential - 06/15/17 12:12 Blood leukocytes automated count (number/volume) 10.4 10*3/uL 4.3-11.0 Blood erythrocytes automated count (number/volume) 4.84 10*6/uL 4.35-5.85 Venous blood hemoglobin measurement (mass/volume) 15.1 g/dL 11.5-16.0 Blood hematocrit (volume fraction) 43 % 35-52 Automated erythrocyte mean corpuscular volume 88 [foz_us] 80-99 Automated erythrocyte mean corpuscular hemoglobin (mass per erythrocyte) 31 pg 25-34 Automated erythrocyte mean corpuscular hemoglobin concentration measurement ( mass/volume) 35 g/dL 32-36 Automated erythrocyte distribution width ratio 12.6 % 10.0-14.5 Automated blood platelet count (count/volume) 242 10*3/uL 130-400 Automated blood platelet mean volume measurement 11.5 [foz_us] 7.4-10.4 Automated blood neutrophils/100 leukocytes 82 % 42-75 Automated blood lymphocytes/100 leukocytes 14 % 12-44 Blood monocytes/100 leukocytes 3 % 0-12 Automated blood eosinophils/100 leukocytes 1 % 0-10 Automated blood basophils/100 leukocytes 0 % 0-10 Blood neutrophils automated count (number/volume) 8.6 10*3 1.8-7.8 Blood lymphocytes automated count (number/volume) 1.4 10*3 1.0-4.0 Blood monocytes automated count (number/volume) 0.3 10*3 0.0-1.0 Automated eosinophil count 0.1 10*3/uL 0.0-0.3 Automated blood basophil count (count/volume) 0.0 10*3/uL 0.0-0.1 Comprehensive metabolic panel - 06/15/17 12:12 Serum or plasma sodium measurement (moles/volume) 136 mmol/L 135-145 Serum or plasma potassium measurement (moles/volume) 4.0 mmol/L 3.6-5.0 Serum or plasma chloride measurement (moles/volume) 102 mmol/L 98-107 Carbon dioxide 24 mmol/L 21-32 Serum or plasma anion gap determination (moles/volume) 10 mmol/L 5-14 Serum or plasma urea nitrogen measurement (mass/volume) 13 mg/dL 7-18 Serum or plasma creatinine measurement (mass/volume) 0.66 mg/dL 0.60-1.30 Serum or plasma urea nitrogen/creatinine mass ratio 20 NRG Serum or plasma creatinine measurement with calculation of estimated glomerular filtration rate > NRG Serum or plasma glucose measurement (mass/volume) 88 mg/dL 70-105 Serum or plasma calcium measurement (mass/volume) 9.1 mg/dL 8.5-10.1 Serum or plasma total bilirubin measurement (mass/volume) 0.6 mg/dL 0.1-1.0 Serum or plasma alkaline phosphatase measurement (enzymatic activity/volume) 47 U/L 40-136 Serum or plasma aspartate aminotransferase measurement (enzymatic activity/ volume) 19 U/L 5-34 Serum or plasma alanine aminotransferase measurement (enzymatic activity/volume ) 17 U/L 0-55 Serum or plasma protein measurement (mass/volume) 7.5 g/dL 6.4-8.2 Serum or plasma albumin measurement (mass/volume) 4.5 g/dL 3.2-4.5 Serum or plasma C reactive protein measurement (mass/volume) - 06/15/17 12:12 Serum or plasma C reactive protein measurement (mass/volume) 0.37 mg /dL 0.00-0.50 Complete blood count (CBC) with automated white blood cell (WBC) differential - 06/15/17 22:45 Blood leukocytes automated count (number/volume) 7.4 10*3/uL 4.3-11.0 Blood erythrocytes automated count (number/volume) 4.70 10*6/uL 4.35-5.85 Venous blood hemoglobin measurement (mass/volume) 14.6 g/dL 11.5-16.0 Blood hematocrit (volume fraction) 42 % 35-52 Automated erythrocyte mean corpuscular volume 89 [foz_us] 80-99 Automated erythrocyte mean corpuscular hemoglobin (mass per erythrocyte) 31 pg 25-34 Automated erythrocyte mean corpuscular hemoglobin concentration measurement ( mass/volume) 35 g/dL 32-36 Automated erythrocyte distribution width ratio 12.7 % 10.0-14.5 Automated blood platelet count (count/volume) 211 10*3/uL 130-400 Automated blood platelet mean volume measurement 11.2 [foz_us] 7.4-10.4 Automated blood neutrophils/100 leukocytes 87 % 42-75 Automated blood lymphocytes/100 leukocytes 9 % 12-44 Blood monocytes/100 leukocytes 4 % 0-12 Automated blood eosinophils/100 leukocytes 0 % 0-10 Automated blood basophils/100 leukocytes 0 % 0-10 Blood neutrophils automated count (number/volume) 6.4 10*3 1.8-7.8 Blood lymphocytes automated count (number/volume) 0.6 10*3 1.0-4.0 Blood monocytes automated count (number/volume) 0.3 10*3 0.0-1.0 Automated eosinophil count 0.0 10*3/uL 0.0-0.3 Automated blood basophil count (count/volume) 0.0 10*3/uL 0.0-0.1 Serum or plasma choriogonadotropin ( test) detection - 06/15/17 22:45 Serum or plasma choriogonadotropin ( test) detection NEGATIVE NEGATIVE Bacteria identification in genital specimen by aerobe culture - 06/15/17 22:57 Bacteria identification in genital specimen by aerobe culture NORMAL NRG Microscopic examination by wet preparation - 06/15/17 22:57 WET PREP RESULTS 06/15/16 23:10 BY PK NRG Neisseria gonorrhoeae DNA detection by probe and signal amplification method - 06/15/17 22:57 Gonorrhea amp DNA-urine Not Detected Not Detected Chlamydia trachomatis DNA detection by probe and signal amplification method - 06/15/17 22:57 Chlamydia trachomatis DNA detection by probe and target amplification method Not Detected Not Detected Encounters ACCT No. Visit Date/Time Discharge Status Pt. Type Provider Facility Loc./Unit Complaint [id number] 12/14/2017 16:26:53 12/14/2017 23:59:59 CLS Outpatient CÉSAR RIVERA [facility] LAB [id number] 03/14/2016 20:03:00 03/15/2016 09:00:00 DIS Outpatient John Grajeda [facility] ER ADMISSION [id number] 05/16/2018 15:42:00 05/16/2018 23:59:59 CLS Outpatient MELINDA HAILE, ELIS White [facility] RAD G43.009,M54.2 [id number] 07/23/2017 23:45:00 07/23/2017 23:47:00 DIS Emergency JOSE ALBERTO SAGASTUME DO [facility] ER ABD PAIN [id number] 06/15/2017 20:51:00 06/16/2017 00:40:00 DIS Emergency MARY BORREGO MD [facility] ER ABD PAIN,VOMITING [id number] 06/15/2017 11:23:00 06/15/2017 16:05:00 DIS Emergency FINN JIMENEZ [facility] ER ABD PAIN/N/V [id number] 12/25/2016 17:08:11 12/25/2016 17:08:11 DIS Outpatient
[2018-10-13] MEDS: LACTATED RINGERS 1,000 ML IV PRN ×2 (07:47→09:32)
[2018-10-13 08:01] LABS: BASOPHILS % (AUTO) 0 % (0-10); EOSINOPHILS # (AUTO) 0.1 10^3/uL (0.0-0.3); EOSINOPHILS % (AUTO) 2 % (0-10); HEMATOCRIT 42 % (35-52); LYMPHOCYTES # (AUTO) 2.4 X 10^3 (1.0-4.0); LYMPHOCYTES % (AUTO) 39 % (12-44); MEAN CORPUSCULAR HEMOGLOBIN 30 PG (25-34); MEAN CORPUSCULAR HGB CONC 33 G/DL (32-36); MEAN CORPUSCULAR VOLUME 90 FL (80-99); MEAN PLATELET VOLUME 11.5 FL (7.4-10.4); MONOCYTES # (AUTO) 0.4 X 10^3 (0.0-1.0); MONOCYTES % (AUTO) 7 % (0-12); NEUTROPHILS # (AUTO) 3.1 X 10^3 (1.8-7.8); NEUTROPHILS % (AUTO) 52 % (42-75); PLATELET COUNT 234 10^3/uL (130-400); RED CELL DISTRIBUTION WIDTH 12.5 % (10.0-14.5)
[2018-10-13] MEDS ORDERED: BUPIVACAINE 0.25% 30 ML (SENSORCAINE) VIAL ONE (08:38)
--- NOTE | 2018-10-13 08:40 | Progress Note-Pre Operative ---
Pre-Operative Progress Note H&P Reviewed The H&P was reviewed, patient examined and no changes noted. Date Seen by Provider: October 13, 2018 Time Seen by Provider: 08:40 Date H&P Reviewed: October 13, 2018 Time H&P Reviewed: 08:40 Pre-Operative Diagnosis: Congenital Hymenal Anomaly BONI RODRIGUEZ DO October 13, 2018 08:40
[2018-10-13] MEDS ORDERED: D5 LR IV SOLUTION 1,000 ML IV SCH (08:43)
[2018-10-13] MEDS ORDERED: KETOROLAC 30 MG/ML VIAL IVP ONE (08:45)
[2018-10-13] MEDS ORDERED: ONDANSETRON 4 MG/2 ML (SDV) Z0FRAN IVP PRN ×2 (08:45→10:00)
[2018-10-13] MEDS ORDERED: ONDANSETRON 4 MG/2 ML (SDV) Z0FRAN ONE (09:04)
[2018-10-13] MEDS ORDERED: LIDOCAINE PF 2% 5 ML (XYLOCAINE) VIAL ONE (09:04)
[2018-10-13] MEDS ORDERED: fentaNYL INJECTION 100 MCG/2 ML AMP ONE (09:04)
[2018-10-13] MEDS ORDERED: proPOfol 200 MG/20 ML (DIPRIVAN) VIAL IV ONE ×2 (09:04→09:40)
[2018-10-13] MEDS ORDERED: MIDAZOLAM 2 MG/2 ML (VERSED) VIAL ONE (09:04)
[2018-10-13] MEDS ORDERED: DEXAMETHASONE 10 MG/ML (DECADRON) 1 ML VIAL ONE (09:04)
[2018-10-13] MEDS ORDERED: SEVOFLURANE (ULTANE) 15 ML INHAL SOLN ONE ×3 (09:09→09:40)
[2018-10-13] MEDS ORDERED: BUP/EPI 0.5% 1:200,000 (SENSORCAINE) 30 ML VIAL ONE (09:29)
--- NOTE | 2018-10-13 09:58 | Discharge Inst-Women's Service ---
Discharge Inst-Women's Serv Depart Medication/Instructions New, Converted or Re-Newed RX: RX on Chart Consults/Follow Up Additional Follow Up: Yes Orders/Referrals Dr. Rodriguez in 6 weeks Activity Activity: Activity as Tolerated Driving Instructions: You May Drive NO SMOKING: NO SMOKING Nothing Inside Vagina: No Douching, No Stow, No Tampons Diet Discharge Diet: No Restrictions Symptoms to Report to : Bleeding Excessive, Pain Increased, Fever Over 101 Degrees F, Vaginal Bleeding Increase, Questions/Concerns For Any Problems or Questions: Contact Your Physician BONI RODRIGUEZ DO October 13, 2018 09:58
[2018-10-13] MEDS ORDERED: ACHD5005 PO (09:59)
[2018-10-13] MEDS ORDERED: IBUP-1773 PO (09:59)
[2018-10-13] MEDS ORDERED: HYDROcodone/APAP 5 MG/325 MG (LORTAB) TAB PO PRN (10:00)
[2018-10-13] MEDS ORDERED: HYDROmorphone 2 MG/ML VIAL (DILAUDID) IV ONE (10:00)
[2018-10-13] MEDS ORDERED: morphine INJ 10 MG/ML 1ML (SYR OR VIAL) IVP ONE (10:00)
--- NOTE | 2018-10-13 16:20 | OPERATIVE REPORT ---
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 PROCEDURE PERFORMED: Hymenectomy and revision of vaginal introitus. SURGEON: Boni Rodriguez DO. ANESTHESIA: LMA general. ESTIMATED BLOOD LOSS: Minimal. URINE OUTPUT: Not recorded. FLUIDS: 1000 mL of lactated Ringer solution. FINDINGS: There is a dense enlarged thickened lower margin of the hymenal ring with grossly normal appearing cervix, vaginal mucosa and external female genitalia. SPECIMENS SENT: None. INDICATIONS: This is a 23-year-old female patient who was seen in my office, I was for a third opinion. At that point, she had seen two prior previous women's healthcare providers both of which had not found anything abnormal. However, the patient reports continuing to have bleeding and pain after intercourse and pain with intercourse. Her most recent encounter involved in evaluation of no blood coming from the vaginal opening, but external blood noted on wiping after she had had sex. Upon my evaluation in the office, I was able to identify that there was thickened scarred appearing hymen at the base of the vagina going from approximately at the hymenal opening from 2:[address] around to 10 o'clock. This area had evidence of previous scarring and rupture in the past. I discussed with the patient hymenal revision including a hymenectomy to excise this tissue as it continues to tear and give her problems. Risks of procedure were discussed with the patient in detail including risk of bleeding, infection, possible scarring and potential unintended results involving ongoing issues with intercourse. We discussed risk of anesthesia. After everything had been reviewed with the patient in detail, in the preoperative area, it was again reviewed with her fiance present. All of her questions were answered and consent was obtained. The patient was taken to the operating room. OPERATIVE REPORT IN DETAIL: Once in the operating room, anesthesia was found to be adequate, placed in dorsal lithotomy position, prepped and draped in normal sterile fashion. I began the procedure by once again evaluating the vagina and the cervix. 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 I then took my attention to the hymen, which is grasped using Allis clamps and from the vaginal mucosal wall. The base of the hymenal ring was then injected using 0.25% Marcaine with epinephrine all along the margin and then the entire hymenal ring is then excised using Metzenbaum scissors. The open defect is then reapproximated using 3-0 Vicryl suture in a running locked fashion after which there was no active bleeding noted from any of my dissection planes. The patient tolerated the procedure well and was taken to recovery in stable condition. Lap and sponge counts were correct at the procedure, instrument counts correct as well. Job ID: [id number] DocumentID: [id number] Dictated Date: 10/13/2018 10:14:38 Jewelry Salesperson Date: 10/13/2018 16:19:45 Dictated By: BONI RODRIGUEZ DO
== END 2018-10-13 12:15 | disposition home or self-care (01) ==
LOC: SDC 07:15
PROVIDERS: ATTEND Obstetrics & Gynecology
DX: Q52.4 Other congenital malformations of vagina (principal); N86 Erosion and ectropion of cervix uteri; F41.9 Anxiety disorder, unspecified; Z79.899 Other long term (current) drug therapy
CPT/HCPCS: 36415; 84703; 85025; 86850; 86900; 86901; 87081